=== PATIENT | female | born 2005 | race Caucasian/White ===

== ENCOUNTER 2024-02-28 09:04 | Day surgery (SDC) | payer OTHER ==
[~2024-02-28] VITALS: Ht 162.6 cm; Wt 68.6 kg
[~2024-02-28 09:04] MED LIST: SERT25TA21 PO; SYED1TAB2 PO
[2024-02-28] MEDS ORDERED: LR 1,000 ML IV SCH ×2 (09:15→13:50)
[2024-02-28] MEDS ORDERED: KETOROLAC 60MG 2ML VIAL As Ordered ONE (11:05)
[2024-02-28] MEDS ORDERED: propofoL 200 MG/20 ML VIAL As Ordered ONE (11:05)
[2024-02-28] MEDS ORDERED: fentaNYL 100 MCG/2 ML INJECTION As Ordered ONE (11:05)
[2024-02-28] MEDS ORDERED: ACETAMINOPHEN 1000MG 100ML IV BAG As Ordered ONE (11:05)
[2024-02-28] MEDS ORDERED: MIDAZOLAM INJ 2MG/2ML VIAL As Ordered ONE (11:05)
[2024-02-28] MEDS ORDERED: ONDANSETRON 4MG 2ML VIAL As Ordered ONE (11:05)
[2024-02-28] MEDS ORDERED: LIDOCAINE 2% 100MG/5ML SDV (FOR ANES.) As Ordered ONE (11:06)
[2024-02-28] MEDS: LIDOCAINE 1% SDV 30ML VIAL As Ordered ONE (13:00)
[2024-02-28] MEDS: SILVER NITRATE APPLICATOR (1 = QTY 10) As Ordered ONE (13:20)
[2024-02-28] MEDS: DOXYCYCLINE HYCLATE 100MG/10ML VIAL As Ordered ONE (13:30)
[2024-02-28] MEDS ORDERED: oxyCODONE 5MG TAB PO PRN (13:50)
[2024-02-28] MEDS ORDERED: ONDANSETRON 4MG 2ML VIAL IV PRN (13:50)
[2024-02-28] MEDS ORDERED: fentaNYL 100 MCG/2 ML INJECTION IV PRN (13:50)
[2024-02-28] MEDS ORDERED: HYDROMORPHONE HCL 0.5 MG/ 0.5 ML SYRINGE IV PRN (13:50)
[2024-02-28 15:09] VITALS: BP 139/76; TEMP 97.8; O2SAT 100
== END 2024-02-28 15:13 | disposition home or self-care (01) ==
LOC: M SDC 09:04
PROVIDERS: ATTEND Obstetrics & Gynecology
DX: O02.1 Missed abortion (principal); F17.290 Nicotine dependence, other tobacco product, uncomplicated; F32.A Depression, unspecified; Z79.899 Other long term (current) drug therapy
CPT/HCPCS: 59820; 88305; J0131; J1100; J1885; J2250; J2405; J3010